=== PATIENT | male | born 1955 | race Caucasian/White ===

== ENCOUNTER 2017-05-03 14:28 | Outpatient (CLI) | payer BC ==
[2017-05-03 15:13] LABS: Anion Gap 12 mmol/L (10-20); BUN (Urea Nitrogen) 16 mg/dL (8.4-25.7); Calc. Creatinine Clearance 0 mL/min (70-130); Calcium 9.3 mg/dL (7.8-10.44); Carbon Dioxide 27 mmol/L (23-31); Chloride 107 mmol/L (98-107); Estimated GFR-MDRD 63
[2017-05-03 15:24] LABS: Bilirubin Negative (Negative); Blood, Urine Negative (Negative); Glucose, Urine (Dipstick) Negative (Negative); Ketone, Urine Negative (Negative); Nitrite Negative (Negative); Protein, Urine (Dipstick) Negative (Neg-Trace); Urobilinogen 0.2 mg/dL (0.2-1.0)
[2017-05-03 15:27] LABS: Bacteria/HPF None Seen HPF (None Seen); Hyaline Casts/LPF 0-3 HYALINE CAST LPF (0-3 Hyaline); RBC/HPF 0-3 HPF (0-3); Squamous Epithelial None Seen HPF (0-3); WBC/HPF 0-3 HPF (0-3)
--- NOTE | 2017-05-03 15:45 | RAD ---
KUB: HISTORY: Renal calculi. FINDINGS: Comparison is made with the exam of 11/25/16. Postop changes of cholecystectomy are again seen. There is a tiny calcific density in the projectio n of the inferior pole of the left kidney. Calcific densities are also seen in the projection of th e lateral aspect of the left mid kidney. These may represent renal calculi. No calculi are seen in the course of the ureters or the urinary bladder. There is fecal material within the colon which m ay obscure right renal calculi. POS: [facility]
== END 2017-05-03 14:29 | disposition home or self-care (01) ==
LOC: RAD 14:28
PROVIDERS: ATTEND Urology
DX: Z12.5 Encounter for screening for malignant neoplasm of prostate (principal); N20.0 Calculus of kidney; R31.9 Hematuria, unspecified
CPT/HCPCS: 36415; 74000; 80048; 81001; 87086; 88112; G0103

== ENCOUNTER 2017-09-05 15:15 | Outpatient (CLI) | payer BC ==
--- NOTE | 2017-09-05 15:49 | RAD ---
ABDOMEN ONE VIEW: History: Renal calculi. Comparison: 05-03-17 FINDINGS: Numerous left sided renal calculi. Mild levoscoliosis. Moderate degenerative disease of the pubic sym physis. IMPRESSION: Multiple left sided renal calculi, similar. POS: H
== END 2017-09-05 15:16 | disposition home or self-care (01) ==
LOC: RAD 15:15
PROVIDERS: ATTEND Urology
DX: N20.0 Calculus of kidney (principal); R31.9 Hematuria, unspecified
CPT/HCPCS: 36415; 74018; 80053; 80061; 81001; 84443; 87086; 87186; 88112

== ENCOUNTER 2017-09-11 07:50 | Outpatient (CLI) | payer BC | END 2017-09-11 07:51 | disposition home or self-care (01) | LOC: BICULT 07:50 | PROVIDERS: ATTEND Urology | DX: R79.89 Other specified abnormal findings of blood chemistry (principal); N20.0 Calculus of kidney | CPT/HCPCS: 76770 ==

== ENCOUNTER 2018-04-02 08:15 | Outpatient (CLI) | payer BC ==
[2018-04-02 10:44] LABS: Anion Gap 12 mmol/L (10-20); BUN (Urea Nitrogen) 20 mg/dL (8.4-25.7); Calc. Creatinine Clearance 0 mL/min (70-130); Calcium 9.3 mg/dL (7.8-10.44); Carbon Dioxide 26 mmol/L (23-31); Chloride 108 mmol/L (98-107); Estimated GFR-MDRD 65; Glucose 112 mg/dL (80-115); Potassium 4.3 mmol/L (3.5-5.1); Sodium 142 mmol/L (136-145)
[2018-04-02 11:43] LABS: Bilirubin Negative (Negative); Blood, Urine Negative (Negative); Clarity CLEAR (Clear); Glucose, Urine (Dipstick) Negative (Negative); Leukocyte Small (Negative); Nitrite Negative (Negative); Protein, Urine (Dipstick) Negative (Neg-Trace); Specific Gravity, Urine 1.019 (1.002-1.036); Urobilinogen 0.2 mg/dL (0.2-1.0)
[2018-04-02 11:49] LABS: Bacteria/HPF None Seen HPF (None Seen); Hyaline Casts/LPF 0-3 HYALINE CAST LPF (0-3 Hyaline); Pathc Cast-AUWi Flag 0.14 (0-2.49); RBC/HPF 0-3 HPF (0-3); Squamous Epithelial 0-3 HPF (0-3); WBC/HPF 0-3 HPF (0-3)
== END 2018-04-02 08:16 | disposition home or self-care (01) ==
LOC: BICULT 08:15
PROVIDERS: ATTEND Urology
DX: N20.0 Calculus of kidney (principal); Z12.5 Encounter for screening for malignant neoplasm of prostate; R39.11 Hesitancy of micturition; Z80.42 Family history of malignant neoplasm of prostate
CPT/HCPCS: 74018; 76770; 80048; 81001; 87086; G0103

== ENCOUNTER 2019-03-24 08:17 | Emergency (ER) | payer BC ==
[2019-03-24] MEDS ORDERED: Morphine 4 MG/ML VIAL ONE (09:10)
[2019-03-24] MEDS ORDERED: Ondansetron PF 4 MG/2 ML Vial ONE (09:10)
--- NOTE | 2019-03-24 10:01 | CT ---
EXAM: Abdomen and pelvic CT scan without contrast: HISTORY: Left-sided pain, history of kidney stones COMPARISON: 07/06/2016 FINDINGS: The visualized lung bases are clear. Liver: 1.2 cm diameter stable cyst in the central liver. Gallbladder:Status post cholecystectomy without significant ductal dilatation. Pancreas:Unremarkable Spleen:Unremarkable. Adrenal glands:Unremarkable. Kidneys:Multiplenonobstructing left renal calculus. 0.6 x 1.0 cm diameter obstructing proximal left ureteral calculus withhydronephrosis as well as promi nent leftperirenaland pararenalfluid and fat strandingsecondary to the obstruction.No solid or cystic mass. No evidence of bowel obstruction. Colonic diverticulosis without acute diverticulitis. No CT evidence for acute appendicitis. The urinary bladder is unremarkable. No abscess, adenopathy, or abnormal fluid collection within the abdomen or pelvis. IMPRESSION: 0.6 x 1.0 cm obstructing proximal left ureteral calculus with hydronephrosis and prominent perirenal edema and fat stranding.
[2019-03-24 10:28] LABS: #Eosinphils 0.1 thou/uL (0.0-0.7); #Lymphocytes 0.7 thou/uL (1.20-3.40); #Monocytes 0.5 thou/uL (0.11-0.59); #Neutrophils 6.4 thou/uL (1.40-6.50); %Basophils 0.5 % (0.0-1.0); %Eosinophils 0.7 % (0.0-10.0); %Lymphocytes 9.6 % (21.0-51.0); %Monocytes 6.2 % (0.0-10.0); %Neutrophils 83.1 % (42.0-75.0); Hemoglobin 14.6 g/dL (14.0-18.0); Mean Corpuscular HGB CONC 34.2 g/dL (32.0-36.0); Mean Corpuscular Volume 99.3 fL (78.0-98.0); Mean Platelet Volume 6.8 fL (7.4-10.4); Platelet Count 109 thou/uL (130-400); RBC Distribution Width 12.7 % (11.5-14.5); Red Blood Cell (RBC) Count 4.29 mill/uL (4.70-6.10); White Blood Cell (WBC) Count 7.7 thou/uL (4.8-10.8)
[2019-03-24 10:43] LABS: ALT (SGPT) 39 U/L (8-55); AST (SGOT) 24 U/L (5-34); Albumin 3.7 g/dL (3.4-4.8); Alkaline Phosphatase 52 U/L (40-150); Anion Gap 13 mmol/L (10-20); BUN (Urea Nitrogen) 20 mg/dL (8.4-25.7); Bilirubin, Total 0.7 mg/dL (0.2-1.2); Calc. Creatinine Clearance 0 mL/min (70-130); Calcium 8.8 mg/dL (7.8-10.44); Carbon Dioxide 18 mmol/L (23-31); Chloride 108 mmol/L (98-107); Estimated GFR-MDRD 48; Globulin 1.9 g/dL (2.4-3.5); Glucose 126 mg/dL (80-115); Potassium 4.4 mmol/L (3.5-5.1); Protein, Total 5.6 g/dL (5.8-8.1); Sodium 135 mmol/L (136-145)
[2019-03-24 11:04] LABS: Bilirubin Negative (Negative); Blood, Urine Large (Negative); Glucose, Urine (Dipstick) Negative (Negative); Leukocyte Negative (Negative); Nitrite Negative (Negative); Protein, Urine (Dipstick) 30 mg/dL (Neg-Trace); Urobilinogen 0.2 mg/dL (Less than 2)
[2019-03-24 11:06] LABS: Clarity Hazy (Clear)
[2019-03-24 11:12] LABS: Bacteria/HPF 1+ HPF (None Seen); RBC/HPF Greater than 50 HPF (0-3); Squamous Epithelial None Seen HPF (0-3); WBC/HPF 0-3 HPF (0-3)
[2019-03-24] MEDS ORDERED: HYDROcodone/Acetaminophen 10/325 mg Tablet ONE (12:08)
--- NOTE | 2019-03-25 14:35 | CON ---
DATE OF CONSULTATION: 03/24/2019 REASON FOR CONSULTATION: Left flank pain, left ureter stone, possible infection. HISTORY: Mr. Morris is a 63-year-old local [employer]. He has a prior history of stone disease. He presented to the emergency room this morning with flank pain, nausea, and vomiting. He underwent CT scan imaging and that demonstrated a 6 mm x 2 mm left upper ureter stone. He was managed medically and was discharged home. He returned to the emergency room tonight with recurrent nausea, vomiting, and pain. It should be noted that his urinalysis does demonstrate bacteria. He does not have a fever nor an elevated white count. Because of the recurrent nature of his pain despite medical therapy, he has requested surgical intervention. PAST MEDICAL HISTORY: Paroxysmal atrial fibrillation, prior cardiac ablation, kidney stones, iej-[id number]-wemugtofx diabetes PAST SURGICAL HISTORY: Cholecystectomy, ACL repair, tonsillectomy, ablation for atrial fibrillation, cardiac catheterization 2014, ureteroscopy, and laser lithotripsy. SOCIAL HISTORY: He is a nonsmoker. Does not drink alcohol. 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 FAMILY HISTORY: Significant for diabetes and hypertension. REVIEW OF SYSTEMS: RESPIRATORY: Denies any shortness of breath. CARDIOVASCULAR: Denies chest pain or palpitations. GASTROINTESTINAL: Denies chronic constipation or diarrhea. He has been having nausea and vomiting almost all day today. GENITOURINARY: No difficulty voiding. Denies any dysuria. LABORATORY DATA: White count 6.8, hematocrit 45.9. Urine analysis; 3+ blood, greater than 50 rbc's, 46 white cells, 1+ bacteria. IMPRESSION: Mr. Morris is a 63-year-old gentleman with prior history of stone disease. He has a left upper ureter stone that is unlikely to pass based on size 6 x 10 mm. He has been having persistent nausea and vomiting despite medical therapy and has had 2 trips to the emergency room in less than 24 hours. He also has urinalysis that demonstrates some bacteria. We have discussed management options and he would like to proceed with ureteral stent placement. The procedure, potential limitations, and complications have been discussed with him. PLAN: Cystoscopy, left double-J stent placement. Job ID: [id number] MTDD
== END 2019-03-24 12:17 | disposition home or self-care (01) ==
LOC: ERS 08:17
DX: N13.2 Hydronephrosis with renal and ureteral calculous obstruction (principal); I48.91 Unspecified atrial fibrillation; G47.30 Sleep apnea, unspecified; E11.9 Type 2 diabetes mellitus without complications; F32.9 Major depressive disorder, single episode, unspecified; F98.8 Other specified behavioral and emotional disorders with onset usually occurring in childhood and adolescence; Z79.84 Long term (current) use of oral hypoglycemic drugs
CPT/HCPCS: 36415; 74176; 80053; 81003; 81015; 85025; 87086; 96361; 96374; 96375; J2270; J2405

== ENCOUNTER 2019-03-24 16:29 | Observation (INO) | payer BC ==
[~2019-03-24 16:29] MED LIST: Dexamethasone 20 MG/5 ML VIAL ONE; Lidocaine 1% PF 5 ML VIAL ONE; Ondansetron PF 4 MG/2 ML Vial ONE; PROPOFOL 200 MG/20 ML VIAL ONE; Rocuronium Bromide 10 MG/ML (10ML VIAL) ONE; Succinylcholine Chloride 20 MG/ML 10 ml SYRINGE FS ONE
[2019-03-24 17:59] LABS: #Monocytes 0.6 thou/uL (0.11-0.59); #Neutrophils 5.1 thou/uL (1.40-6.50); %Basophils 0.1 % (0.0-1.0); %Eosinophils 0.7 % (0.0-10.0); %Lymphocytes 15.2 % (21.0-51.0); %Monocytes 9.1 % (0.0-10.0); Hemoglobin 15.5 g/dL (14.0-18.0); Mean Corpuscular HGB CONC 33.8 g/dL (32.0-36.0); Mean Corpuscular Hemoglobin 33.7 pg (27.0-31.0); Mean Corpuscular Volume 99.7 fL (78.0-98.0); Mean Platelet Volume 6.9 fL (7.4-10.4); Platelet Count 116 thou/uL (130-400); RBC Distribution Width 12.7 % (11.5-14.5); White Blood Cell (WBC) Count 6.8 thou/uL (4.8-10.8)
[2019-03-24] MEDS ORDERED: Ketorolac Tromethamine 30 MG/ML VIAL ONE (18:06)
[2019-03-24] MEDS ORDERED: Promethazine HCl 25 MG/ML VIAL ONE (18:06)
[2019-03-24 18:16] LABS: Anion Gap 13 mmol/L (10-20); BUN (Urea Nitrogen) 19 mg/dL (8.4-25.7); Calc. Creatinine Clearance 0 mL/min (70-130); Calcium 9.4 mg/dL (7.8-10.44); Carbon Dioxide 25 mmol/L (23-31); Chloride 106 mmol/L (98-107); Estimated GFR-MDRD 41; Glucose 112 mg/dL (80-115); Potassium 4.4 mmol/L (3.5-5.1); Sodium 140 mmol/L (136-145)
[2019-03-24 19:34] LABS: Bilirubin Negative (Negative); Blood, Urine 3+ (Negative); Clarity Clear (Clear); Glucose, Urine (Dipstick) Normal (Negative); Leukocyte Negative Leu/uL (Negative); Nitrite Negative (Negative); Protein, Urine (Dipstick) 20 mg/dL (Neg-Trace); RBC/HPF Greater than 50 HPF (0-3); Squamous Epithelial None Seen HPF (0-3); Urobilinogen Normal mg/dL (Less than 2)
[2019-03-24 19:35] LABS: Bacteria/HPF 1+ HPF (None Seen)
[2019-03-24] MEDS ORDERED: cefTRIAXone\\ROCEPHIN 2 GM VIAL ONE (20:40)
[2019-03-24] MEDS ORDERED: Iothalamate Meglumine 60% 50 ML VIAL FS ONE (22:39)
[2019-03-24] MEDS ORDERED: Fentanyl 100 MCG/2 ML VIAL ONE (22:40)
[2019-03-24] MEDS ORDERED: Promethazine HCl 25 MG/ML VIAL SLOW IVP PRN (23:54)
[2019-03-24] MEDS ORDERED: Ondansetron HCl/PF 4 MG/2 ML Vial IVP PRN (23:54)
[2019-03-24] MEDS ORDERED: Promethazine HCl 25 MG/ML VIAL IM PRN (23:54)
[2019-03-25] MEDS ORDERED: Sodium Chloride 0.9% 1,000 ML IV SCH (01:05)
[2019-03-25] MEDS ORDERED: Acetaminophen 325 MG TAB PO PRN (01:05)
[2019-03-25] MEDS ORDERED: Ondansetron ODT 4 MG TAB PO PRN (01:05)
[2019-03-25] MEDS ORDERED: HYDROcodone/Acetaminophen 10/325 mg Tablet PO PRN (01:05)
[2019-03-25 01:38] VITALS: BMI 24.0
--- NOTE | 2019-03-25 02:25 | OP ---
DATE OF PROCEDURE: 03/24/2019 PREOPERATIVE DIAGNOSES: Left upper ureteral stone, 6 x 10 mm; bacteriuria. POSTOPERATIVE DIAGNOSES: Left upper ureteral stone, 6 x 10 mm; bacteriuria. PROCEDURE: Cystoscopy, left double-J stent placement. ANESTHESIA: General. INDICATIONS: Mr. Morris is a 63-year-old gentleman with a prior history of stone disease. He presented to the emergency room this morning with nausea and vomiting. He was treated medically and went home. He returned with recurrent symptoms later in the evening. He also was noted to have bacteria in the urine. For that reason, he is being brought to the operating room for cystoscopy and double-J stent placement. DETAILS OF PROCEDURE: The patient was given general anesthesia and IV antibiotics. He was sterilely prepped and draped in lithotomy position. Cystoscope was passed into the bladder. Bladder was examined in its entirety. There were no mucosal lesions. Left ureteral orifice was intubated with a floppy tip guidewire which was passed cephalad under fluoroscopic control. A 6 x 26 stent was passed over the guidewire and coiled in the left renal pelvis and in the bladder as determined fluoroscopically and cystoscopically. The bladder was drained. The patient was awakened in the operating room, transferred to the recovery room in stable condition. COMPLICATION: None. ESTIMATED BLOOD LOSS: Minimal. Job ID: [id number]
[2019-03-25] MEDS ORDERED: Famotidine 20 MG TAB PO SCH (09:00)
--- NOTE | 2019-03-25 09:33 | RAD ---
RETROGRADE PYELOGRAM: HISTORY: Renal calculi. FINDINGS: A single portable fluoroscopic spot film is presented for interpretation demonstrating a left uretera l stent placed. IMPRESSION: Left renal calculi. Left ureteral stent in place. POS: [facility]
[2019-03-25 11:26] VITALS: BP 120/74; TEMP 98.7
--- NOTE | 2019-04-01 11:53 | DIS ---
DATE OF ADMISSION: 03/25/2019 DATE OF DISCHARGE: 03/25/2019 Admission was for observation only. HISTORY: Mr. Morris is a 63-year-old gentleman with a history of recurrent stone disease. He presented to the emergency room twice in less than 24 hours for unremitting pain. Urinalysis demonstrated bacteriuria. He was admitted for further evaluation and treatment. HOSPITAL STAY: The patient was taken to the emergency room after initial evaluation and then taken to the operating room for cystoscopy and left ureteral stent placement. A CT scan had been performed in the emergency room and demonstrated a 6 x 10 mm left upper ureteral stone and urinalysis demonstrated bacteriuria. After stent placement, the patient was admitted to the hospital and observed overnight. He did well and remained clinically stable. He was discharged home in the morning on 03/25/2019, in stable condition. DISCHARGE CONDITION: Good. FOLLOWUP: The patient will plan to follow up with his urologist, Dr. Menjivar for further management of the left ureteral stone. Job ID: [id number]
== END 2019-03-25 15:22 | disposition home or self-care (01) ==
LOC: ERS 16:29 → SDC/OP 23:25 → SJJU 03-25 01:03 → SDC/OP 03-25 01:24 → SJJU 03-25 01:24
PROVIDERS: ADMIT Urology; ATTEND Urology
PROC: 0T778DZ Dilation of Left Ureter with Intraluminal Device, Via Natural or Artificial Opening Endoscopic (ICD-10-PCS; principal; 2019-03-24)
DX: N20.1 Calculus of ureter (principal); R82.71 Bacteriuria; I48.91 Unspecified atrial fibrillation; G47.30 Sleep apnea, unspecified; M19.90 Unspecified osteoarthritis, unspecified site; J45.909 Unspecified asthma, uncomplicated; E11.9 Type 2 diabetes mellitus without complications; F32.9 Major depressive disorder, single episode, unspecified; F98.8 Other specified behavioral and emotional disorders with onset usually occurring in childhood and adolescence; Z79.84 Long term (current) use of oral hypoglycemic drugs; Z79.899 Other long term (current) drug therapy
CPT/HCPCS: 74420; 87086; 96361; 96365; 96367; 96375; C1758; C1769; G0378; J0696; J1100; J1885; J2001; J2405; J2550; J2704; J3010

== ENCOUNTER 2019-03-28 13:54 | Outpatient (CLI) | payer BC ==
[2019-03-28 15:52] LABS: Hemoglobin 16.4 g/dL (14.0-18.0); Mean Corpuscular HGB CONC 34.3 g/dL (32.0-36.0); Mean Corpuscular Hemoglobin 33.7 pg (27.0-31.0); Mean Corpuscular Volume 98.3 fL (78.0-98.0); Mean Platelet Volume 6.9 fL (7.4-10.4); Platelet Count 137 thou/uL (130-400); RBC Distribution Width 12.4 % (11.5-14.5); Red Blood Cell (RBC) Count 4.86 mill/uL (4.70-6.10); White Blood Cell (WBC) Count 6.4 thou/uL (4.8-10.8)
[2019-03-28 15:58] LABS: INR-International Normal Ratio 0.9; PTT 27.3 SEC (22.9-36.1); Prothrombin Time 12.5 SEC (12.0-14.7)
[2019-03-28 16:18] LABS: Bacteria/HPF None Seen HPF (None Seen); Bilirubin Negative (Negative); Blood, Urine 3+ (Negative); Clarity Clear (Clear); Glucose, Urine (Dipstick) Normal (Negative); Leukocyte 75 Leu/uL (Negative); Nitrite Negative (Negative); Protein, Urine (Dipstick) 50 mg/dL (Neg-Trace); RBC/HPF Greater than 50 HPF (0-3); Squamous Epithelial 0-3 HPF (0-3); Urobilinogen Normal mg/dL (Less than 2)
[2019-03-28 16:46] LABS: Anion Gap 14 mmol/L (10-20); BUN (Urea Nitrogen) 18 mg/dL (8.4-25.7); Calc. Creatinine Clearance 0 mL/min (70-130); Calcium 9.9 mg/dL (7.8-10.44); Carbon Dioxide 24 mmol/L (23-31); Chloride 106 mmol/L (98-107); Estimated GFR-MDRD 59; Glucose 83 mg/dL (80-115); Sodium 140 mmol/L (136-145)
== END 2019-03-28 13:55 | disposition home or self-care (01) ==
LOC: LABBT 13:54
PROVIDERS: ATTEND Urology
DX: Z01.812 Encounter for preprocedural laboratory examination (principal); N20.1 Calculus of ureter; Z12.5 Encounter for screening for malignant neoplasm of prostate; N20.0 Calculus of kidney; Z80.42 Family history of malignant neoplasm of prostate; N40.1 Benign prostatic hyperplasia with lower urinary tract symptoms; R39.11 Hesitancy of micturition
CPT/HCPCS: 80048; 81001; 85027; 85610; 85730; 87086

== ENCOUNTER 2019-04-08 08:34 | Day surgery (SDC) | payer BC ==
[2019-03-28 14:52] VITALS: BMI 24.0
[2019-04-08] MEDS ORDERED: cefTRIAXone\\ROCEPHIN 1 GM VIAL ONE (09:29)
[2019-04-08] MEDS ORDERED: Levofloxacin 500 mg/D5W 100 ml Premix Bag ONE (09:29)
[2019-04-08] MEDS ORDERED: Sodium Chloride 0.9% 100 ML ONE (09:29)
--- NOTE | 2019-04-08 11:00 | RAD ---
KUB: Date: 04/08/19 COMPARISON: 09/05/17 study. HISTORY: Preop. FINDINGS: A left ureteral stent is present, which is in good position. Multiple punctate lower pole left renal calculi are seen. No definitive right renal calculus is noted. There is a probable calculus along the proximal end of the stent. IMPRESSION: Left renal calculi and what appears to be a proximal left ureteral calculus. POS: OFF
--- NOTE | 2019-04-08 11:04 | RAD ---
PORTABLE CHEST: Date: 04/08/19 HISTORY: Preop. COMPARISON: 01/04/17. FINDINGS: Heart size and mediastinum are within normal limits. Lungs are clear of infiltrates. No significant b alex findings. Postoperative changes of the right shoulder are seen. IMPRESSION: No active intrathoracic disease. POS: OFF
[2019-04-08] MEDS ORDERED: Fentanyl 100 MCG/2 ML VIAL ONE (13:23)
[2019-04-08] MEDS ORDERED: Iothalamate Meglumine 60% 50 ML VIAL FS ONE (13:29)
[2019-04-08] MEDS ORDERED: SUGAMMADEX SODIUM 200 MG/2 ML VIAL ONE (13:32)
[2019-04-08] MEDS ORDERED: Phenazopyridine HCl 97.5 MG TABLET ONE (15:06)
[2019-04-08] MEDS ORDERED: Tamsulosin HCl 0.4 MG CAP ONE (15:06)
--- NOTE | 2019-04-08 15:50 | RAD ---
Retrograde ureterogram HISTORY: Renal stone. FINDINGS: Intraoperative fluoroscopy was provided for retrograde study as performed by Dr. Kanu bae. Multiple spot fluoroscopic images show contrast opacification of the nondilated left renal collecting system and the proximal portions of a left ureteral stent. Fluoroscopy time 1:03.
--- NOTE | 2019-04-08 16:20 | OP ---
DATE OF PROCEDURE: 04/08/2019 PREOPERATIVE DIAGNOSES: 1. A 63-year-old male with history of recurrent urolithiasis, left ureteral calculi measuring 6 mm x 1 cm proximal ureter with hydronephrosis. 2. Left punctate renal calculi 3 to 4 numbers, largest measuring 3 mm in the mid pole. Right kidney unremarkable. POSTOPERATIVE DIAGNOSES: 1. A 63-year-old male with history of recurrent urolithiasis, left ureteral calculi measuring 6 mm x 1 cm proximal ureter with hydronephrosis. 2. Left punctate renal calculi 3 to 4 numbers, largest measuring 3 mm in the mid pole. Right kidney unremarkable. PROCEDURES PERFORMED: Cystoscopy, left 6 x 26 double-J ureteral stent exchange, ureteroscopy, pyeloscopy, laser lithotripsy of ureteral and renal calculi, basket extraction of stone fragments, retrograde pyelogram. ANESTHESIA: General. COMPLICATIONS: None apparent. DISPOSITION: To recovery room in stable condition. SPECIMEN: None. INTRAOPERATIVE FINDINGS: Obstructing left proximal ureteral calculi with mucosal adherence, multiple randalls plaques consistent with recurrent stone former, left mid pole 3 mm calculi also laser lithotripsied. INDICATIONS FOR THE PROCEDURE AND HISTORY: This is a 63-year-old male with history of recurrent kidney stones, underwent ureteral stent by on-call Dr. Soto, as he presented with intractable flank pain. He presents today for ureteroscopy and laser lithotripsy. We discussed alternative options such as ESWL, he desired more definitive treatment, i.e. ureteroscopy laser lithotripsy. Risks and complications including but not limited to bleeding pain infection injury to adjacent organs, ureteral renal bladder injury, stricture formation sepsis, indications reviewed and he desired to proceed. DESCRIPTION OF PROCEDURE: After an informed consent was signed, the patient was taken to the operating room, placed in a dorsal lithotomy position with the genital area prepped and draped in the usual surgical sterile fashion. A 21-Ivorian cystoscope was utilized for cystoscopy. Again, demonstrating a bilobar hyperplasia of the prostate. Mild bladder was entered, which demonstrated a previously placed ureteral stent, which was removed without significant issues. The UOs are about 3 to 4 mm proximal to the bladder neck. The pre-existing ureteral stent was removed to the level of the meatus and a 0.35 Sensor wire was passed into the left upper pole. A dual-lumen access sheath was utilized for retrograde pyelogram, and a second wire Super Stiff was placed into the left upper pole. Retrograde pyelogram demonstrates no evidence of hydronephrosis. Stone nidus seen in the proximal ureter as previous. At this time, an 11/13-Ivorian x 46 cm navigator was placed to the level of the stone on fluoroscopy. A flexible ureteroscope was then advanced over the working Super Stiff wire, then subsequently removed. The stone was visually visualized. It would not be negotiated more proximally as it demonstrated mucosal adherence consistent with an obstructing ureteral stone. We laser lithotripsied the stone into multiple fragments using 365 micron laser fiber. At that time, they were fragmented into multiple tiny pieces. At this time, we did survey the collecting system, which demonstrated multiple Darrius plaques. In the mid pole, there was a 3 mm stone, which was laser lithotripsied to dustlike caliber. There were no other stones amenable to be laser lithotripsied as they were Darrius plaques. A fragment of the ureteral calculi did migrate into the mid pole. We basket extracted these. There was no other stone to be basket extracted. The ureter was surveyed, which demonstrated again the area of the stone appeared to have bullous edema consistent with an obstructing ureteral stone and no other stone was seen in the ureter. A 6 x 26 double-J ureteral stent was passed over the safety wire and the wire was then subsequently removed with good coil in the kidney and in the bladder. Bladder was completely emptied and he tolerated the procedure well. He is discharged with ciprofloxacin for one p.o. b.i.d. for 7 days, then one p.o. x1 morning of the appointment April 18, in which he will present for cysto stent pull under [facility]. He is also to continue his Flomax, tramadol 50 mg 1 to 2 p.o. q.6 to 8 hours p.r.n., Azo p.r.n., Colace 100 mg one p.o. b.i.d. p.r.n. The patient will be discharged once he voids. Appointment next for cysto stent pull under [facility]. Job ID: [id number] [facility]
[2019-04-08] MEDS ORDERED: Ondansetron PF 4 MG/2 ML Vial ONE (17:11)
[2019-04-08] MEDS ORDERED: PROPOFOL 200 MG/20 ML VIAL ONE (17:11)
[2019-04-08] MEDS ORDERED: Dexamethasone 20 MG/5 ML VIAL ONE (17:11)
[2019-04-08] MEDS ORDERED: Rocuronium Bromide 10 MG/ML (10ML VIAL) ONE (17:11)
== END 2019-04-08 16:20 | disposition home or self-care (01) ==
LOC: SDC 08:34
PROVIDERS: ATTEND Urology
PROC: 0TF48ZZ Fragmentation in Left Kidney Pelvis, Via Natural or Artificial Opening Endoscopic (ICD-10-PCS; principal; 2019-04-08)
PROC: 0T778DZ Dilation of Left Ureter with Intraluminal Device, Via Natural or Artificial Opening Endoscopic (ICD-10-PCS; principal; 2019-04-08)
DX: N20.2 Calculus of kidney with calculus of ureter (principal); N40.1 Benign prostatic hyperplasia with lower urinary tract symptoms; R39.11 Hesitancy of micturition; E11.9 Type 2 diabetes mellitus without complications; E03.9 Hypothyroidism, unspecified; F32.9 Major depressive disorder, single episode, unspecified; E78.5 Hyperlipidemia, unspecified; Z79.82 Long term (current) use of aspirin; Z79.84 Long term (current) use of oral hypoglycemic drugs; Z79.899 Other long term (current) drug therapy
CPT/HCPCS: 71045; 74018; 74420; C1758; C1769; J0696; J1100; J1956; J2405; J2704; J3010; J3490

== ENCOUNTER 2019-05-28 10:32 | Outpatient (CLI) | payer BC ==
--- NOTE | 2019-05-28 11:09 | ULT ---
Bilateral renal ultrasound CLINICAL INDICATION: Kidney stone COMPARISON: CT abdomen and pelvis on 03/24/2019 FINDINGS: Right kidney: There is no evidence of a renal mass, renal calculus, or hydronephrosis seen. The right kidney measures 10.4 cm x 5.1 cm. Left kidney: There is an echogenic focus demonstrating posterior shadowing seen at the junction of th e midportion and inferior pole left kidney which measures 7 mm in maximal dimension and is compatible with a nonobstructing left renal calculus. Definite additional renal calculi are not seen. No renal mass or hydronephrosis is present on the left.The left kidney measures 10 cm x 5.5 cm. Urinary bladder: Within normal limits for degree of distention. IMPRESSION: 1. Nonobstructing left nephrolithiasis. 2. No hydronephrosis right kidney, and no renal calculus is appreciated on sonographic evaluation inv olving the right kidney.
--- NOTE | 2019-05-28 11:36 | RAD ---
XR Abdomen 1 View/KUB HISTORY: Renal calculi COMPARISON: 04/08/2019 study FINDINGS: The left ureteral stent has been removed. Multiple lower pole left renal calculi are identi fied. No definite ureteral calculus. The right kidney is obscured by stool. IMPRESSION: Interval removal of the left ureteral stent lower pole left renal calculi are again demon strated. No definite ureteral calculus.
== END 2019-05-28 10:33 | disposition home or self-care (01) ==
LOC: BICULT 10:32
PROVIDERS: ATTEND Urology
DX: N20.0 Calculus of kidney (principal)
CPT/HCPCS: 36415; 74018; 76770; 81001; 87086; G0103

== ENCOUNTER 2019-06-06 14:38 | Outpatient (CLI) | payer BC ==
[2019-06-06 15:27] LABS: Hemoglobin 15.2 g/dL (14.0-18.0); Mean Corpuscular HGB CONC 34.4 g/dL (32.0-36.0); Mean Corpuscular Hemoglobin 33.4 pg (27.0-31.0); Mean Corpuscular Volume 97.1 fL (78.0-98.0); Mean Platelet Volume 6.8 fL (7.4-10.4); Platelet Count 126 thou/uL (130-400); RBC Distribution Width 12.5 % (11.5-14.5); Red Blood Cell (RBC) Count 4.55 mill/uL (4.70-6.10); White Blood Cell (WBC) Count 6.2 thou/uL (4.8-10.8)
[2019-06-06 15:34] LABS: PTT 27.8 SEC (22.9-36.1); Prothrombin Time 12.9 SEC (12.0-14.7)
[2019-06-06 15:49] LABS: Anion Gap 11 mmol/L (10-20); BUN (Urea Nitrogen) 19 mg/dL (8.4-25.7); Calc. Creatinine Clearance 0 mL/min (70-130); Calcium 9.5 mg/dL (7.8-10.44); Carbon Dioxide 27 mmol/L (23-31); Chloride 107 mmol/L (98-107); Estimated GFR-MDRD 51; Glucose 100 mg/dL (80-115); Potassium 4.5 mmol/L (3.5-5.1); Sodium 140 mmol/L (136-145)
--- NOTE | 2019-06-09 16:18 | EKG ---
Test Reason : Blood Pressure : / mmHG Vent. Rate : 059 BPM Atrial Rate : 059 BPM P-R Int : 154 ms QRS Dur : 088 ms QT Int : 422 ms P-R-T Axes : 070 048 056 degrees QTc Int : 417 ms Sinus bradycardia Minimal voltage criteria for LVH, may be normal variant Borderline ECG When compared with ECG of 05-JAN-2017 09:50, No significant change was found Confirmed by DR. Mario GOOD ([id number]) on 06/09/2019 4:18:13 PM Referred By: JOSE Confirmed By:DR. Mario GOOD
== END 2019-06-06 14:39 | disposition home or self-care (01) ==
LOC: LABBT 14:38
PROVIDERS: ATTEND Urology
DX: Z01.818 Encounter for other preprocedural examination (principal); Z12.5 Encounter for screening for malignant neoplasm of prostate; N20.1 Calculus of ureter; Z80.42 Family history of malignant neoplasm of prostate; N40.1 Benign prostatic hyperplasia with lower urinary tract symptoms; R39.11 Hesitancy of micturition
CPT/HCPCS: 80048; 85027; 85610; 85730; 93005; 93010

== ENCOUNTER 2019-06-12 09:43 | Day surgery (SDC) | payer BC ==
[2019-06-06 14:56] VITALS: BMI 25.1
[2019-06-12] MEDS ORDERED: PROPOFOL 200 MG/20 ML VIAL ONE (10:20)
[2019-06-12] MEDS ORDERED: Levofloxacin 500 mg/D5W 100 ml Premix Bag ONE (12:05)
[2019-06-12] MEDS ORDERED: Fentanyl 100 MCG/2 ML VIAL ONE (12:13)
[2019-06-12] MEDS ORDERED: Phenazopyridine HCl 97.5 MG TABLET ONE (13:50)
--- NOTE | 2019-06-12 19:54 | OP ---
DATE OF PROCEDURE: 06/12/2019 PRIMARY CARE PHYSICIAN: Dr. Lea Conn. PREOPERATIVE DIAGNOSES: A 64-year-old male with history of BPH, history of recurrent urinary retention. POSTOPERATIVE DIAGNOSES: A 64-year-old male with history of BPH, history of recurrent urinary retention. PROCEDURES PERFORMED: Cystoscopy, UroLift implant x4. ANESTHESIA: TIVA. COMPLICATIONS: None apparent. DISPOSITION: To recovery room in stable condition. INDICATIONS FOR THE PROCEDURE: Mr. Morris is a 64-year-old male, whom I had been following with history of recurrent kidney stone on Flomax due to BPH symptoms of hesitancy, slow stream. He previously had multiple events of urinary retention. He presents today for UroLift. Alternatives of procedure including observation with medical therapy, TURP versus UroLift has been discussed with the patient. He desires minimally invasive approach. DESCRIPTION OF PROCEDURE: After an informed consent was signed, the patient was taken to the operating room, placed in a dorsal lithotomy position with the genital area prepped and draped in the usual surgical sterile fashion. A 21-Georgian cystoscope was utilized to stage the urethra, which demonstrated bilobar hyperplasia with coapting obstructing lateral lobes. Bladder was entered, which demonstrated no evidence of intravesical median lobe. UOs were about 3 to 4 mm proximal to the bladder neck, and kept out of harm's way. At this time, we inserted the UroLift device with a visual obturator. Implant was placed on the left side first, care was taken to stay at least 1.5 cm proximal to the bladder neck. He only required [address] a fourth one, however this was removed because there was a suboptimal placement close to the veru. Using a DVIU scope, we were able to use an endoscopic grasper and retrieve the fourth implant. A total of two on the left and one on the right was required to provide him with a nice channel. Minimal oozing was noted. He is discharged with ciprofloxacin for course of 5 days and Azo p.r.n. He will return to clinic tomorrow for peak flow PVR score. Job ID: [id number] MTDD
== END 2019-06-12 15:40 | disposition home or self-care (01) ==
LOC: SDC 09:43
PROVIDERS: ATTEND Urology
PROC: 0T7D8DZ Dilation of Urethra with Intraluminal Device, Via Natural or Artificial Opening Endoscopic (ICD-10-PCS; principal; 2019-06-12)
DX: N40.1 Benign prostatic hyperplasia with lower urinary tract symptoms (principal); R33.8 Other retention of urine; R39.11 Hesitancy of micturition; R39.12 Poor urinary stream; N52.9 Male erectile dysfunction, unspecified; E11.9 Type 2 diabetes mellitus without complications; E03.9 Hypothyroidism, unspecified; E78.5 Hyperlipidemia, unspecified; F32.9 Major depressive disorder, single episode, unspecified; Z79.82 Long term (current) use of aspirin; Z79.899 Other long term (current) drug therapy; Z79.84 Long term (current) use of oral hypoglycemic drugs; Z80.42 Family history of malignant neoplasm of prostate
CPT/HCPCS: C1889; J1956; J2704; J3010

== ENCOUNTER 2020-01-10 08:40 | Outpatient (CLI) | payer BC ==
--- NOTE | 2020-01-10 09:10 | RAD ---
ABDOMEN 1 VIEW: HISTORY: Calculus of kidney. COMPARISON: 05/28/2019. FINDINGS: Several small renal calculi are noted in the lower portion of the left kidney. No overt ureteral ejrry culus. IMPRESSION: Left lower pole renal calculi. No significant change from prior study. POS: [facility]
--- NOTE | 2020-01-10 09:30 | ULT ---
Bilateral renal ultrasound CLINICAL INDICATION: Renal calculi COMPARISON: 05/28/2019 FINDINGS: Right kidney: There is no evidence of a renal mass, renal calculus, or hydronephrosis seen. The right kidney measures 10.3 cm x 5.1 cm. Left kidney: Previously noted shadowing echogenic focus at the junction of the midportion and inferio r pole left kidney is again seen compatible with a nonobstructing renal calculus measuring 0.5 cm. There is no hydronephrosis or renal mass involving the left kidney.The left kidney measures 10.9 cm x 5.6 cm. Urinary bladder: Normal in appearance. Urinary bladder volume is 230 mL. IMPRESSION: 1. Nonobstructing left nephrolithiasis. 2. Normal appearance of the right kidney. There is no hydronephrosis seen bilaterally.
== END 2020-01-10 08:41 | disposition home or self-care (01) ==
LOC: RAD 08:40 → BICULT 08:41
PROVIDERS: ATTEND Urology
DX: N20.0 Calculus of kidney (principal)
CPT/HCPCS: 74018; 76770

== ENCOUNTER 2020-02-18 14:32 | Outpatient (CLI) | payer BC ==
--- NOTE | 2020-02-18 15:48 | MRI ---
MR OF THE LEFT KNEE WITHOUT CONTRAST INDICATION: Left knee pain TECHNIQUE: Axial and coronal PD fat sat, sagittal T2 fat sat, sagittal PD turbo spin echo and T1 mary nal images were obtained of the left knee. COMPARISON: Left knee radiograph dated January 29, 2020 FINDINGS: Joint effusion: Mild-sized joint effusion Semimembranosus-medial gastrocnemius popliteal cyst: Moderate sized Valladares's cyst Ligaments: There is mucoid degeneration the ACL. The PCL, MCL and LCLC are intact. Extensor mechanism: Intact. Menisci: There is a horizontally oriented tear involving the body and posterior horn of the medial me niscus. The lateral meniscus appears intact. Articular cartilage: There is mild diffuse thinning involving the medial femoral tibial joint compart ment. There is a partial-thickness delaminating tear involving the lateral patellar facet measuring 2 mm but extending 2.1 cm into the lateral patellar facet, best seen on image 8 of series 4. Osseous structures: Normal marrow signal. Popliteus and IT band: Normal. IMPRESSION: 1. Medial meniscal tear. 2. Mucoid degeneration the ACL. 3. Mild diffuse chondral thinning of the medial femoral tibial joint compartment. Partial thickness d elaminating tear of the lateral patellar facet.
== END 2020-02-18 14:33 | disposition home or self-care (01) ==
LOC: BICMRI 14:32
PROVIDERS: ATTEND Internal Medicine
DX: M25.562 Pain in left knee (principal); S83.242A Other tear of medial meniscus, current injury, left knee, initial encounter

== ENCOUNTER 2020-06-01 13:47 | Outpatient (CLI) | payer BC ==
--- NOTE | 2020-06-01 14:21 | RAD ---
XR Abdomen 1 View/KUB History: Kidney calculus Comparison: Abdomen radiograph December 2019 Findings: Multiple left-sided renal calculi are similar with the largest interpolar region measuring 4-5 mm. Smaller 2-3 mm lower pole calculi are present. No definite right-sided renal calculi are appreciated. No dilated loops of large or small bowel. No a cute osseous abnormality. Impression: Similar appearance left renal calculi.
== END 2020-06-01 13:48 | disposition home or self-care (01) ==
LOC: BICRAD 13:47
PROVIDERS: ATTEND Urology
DX: N20.0 Calculus of kidney (principal)
CPT/HCPCS: 36415; 74018; 80048; 81001; G0103

== ENCOUNTER 2020-12-01 10:41 | Outpatient (CLI) | payer BC | END 2020-12-01 10:42 | disposition home or self-care (01) | LOC: BICRAD 10:41 | PROVIDERS: ATTEND Urology | DX: N20.0 Calculus of kidney (principal) | CPT/HCPCS: 74018 ==

== ENCOUNTER 2021-06-01 09:35 | Outpatient (CLI) | payer BC | END 2021-06-01 09:36 | disposition home or self-care (01) | LOC: BICRAD 09:35 | PROVIDERS: ATTEND Urology | DX: N20.0 Calculus of kidney (principal) | CPT/HCPCS: 74018 ==

== ENCOUNTER 2022-02-01 07:54 | Outpatient (CLI) | payer BC | END 2022-02-01 07:55 | disposition home or self-care (01) | LOC: BICCT 07:54 | PROVIDERS: ATTEND Internal Medicine | DX: R91.8 Other nonspecific abnormal finding of lung field (principal); N20.0 Calculus of kidney | CPT/HCPCS: 71250 ==

== ENCOUNTER 2022-05-23 09:58 | Outpatient (CLI) | payer BC | END 2022-05-23 09:59 | disposition home or self-care (01) | LOC: BICRAD 09:58 | PROVIDERS: ATTEND Urology | DX: N20.0 Calculus of kidney (principal); N28.89 Other specified disorders of kidney and ureter | CPT/HCPCS: 74018 ==

== ENCOUNTER 2022-09-12 09:10 | Outpatient (CLI) | payer MEDICARE, BC | END 2022-09-12 09:11 | disposition home or self-care (01) | LOC: BICRAD 09:10 | PROVIDERS: ATTEND Urology | DX: N20.0 Calculus of kidney (principal) | CPT/HCPCS: 74018 ==

== ENCOUNTER 2023-05-15 15:17 | Outpatient (CLI) | payer MEDICARE, BC | END 2023-05-15 15:18 | disposition home or self-care (01) | LOC: BICRAD 15:17 | PROVIDERS: ATTEND Urology | DX: N20.0 Calculus of kidney (principal) | CPT/HCPCS: 74018 ==

== ENCOUNTER 2024-02-21 10:07 | Outpatient (CLI) | payer MEDICARE | END 2024-02-21 10:08 | disposition home or self-care (01) | LOC: BICRAD 10:07 | PROVIDERS: ATTEND Nurse Practitioner Family | DX: M25.562 Pain in left knee (principal); M17.12 Unilateral primary osteoarthritis, left knee ==